=== PATIENT | female | born 1935 | race Caucasian/White ===

== ENCOUNTER 2017-05-20 05:54 | Day surgery (SDC) | payer MEDICARE, OTHER ==
[2017-05-16 13:07] VITALS: BP 160/70
[~2017-05-20] VITALS: Ht 165.1 cm; Wt 60.4 kg
[2017-05-20] VITALS (14 sets, daily range): BP systolic 124–145; BP diastolic 59–69
[2017-05-20] MEDS ORDERED: LACTATED RINGERS 1000ML 1,000 ML IV ONE (07:23)
[2017-05-20] MEDS: CEFAZOLIN SODIUM 1 GM VIAL IVP ONE ×2 (07:53→08:30)
[2017-05-20] MEDS ORDERED: MIDAZOLAM HCL 1 MG/ML 2ML VIAL ONE ×2 (07:57→08:58)
[2017-05-20] MEDS ORDERED: LIDOCAINE PF 2% 5ML ABBOJECT ONE (07:57)
[2017-05-20] MEDS ORDERED: DEXAMETHASONE SOD PHOSPHATE 10MG/ML 1ML VIAL ONE (07:57)
[2017-05-20] MEDS ORDERED: GLYCOPYRROLATE 0.2 MG/ML 5 ML VIAL ONE (07:57)
[2017-05-20] MEDS ORDERED: ONDANSETRON HCL 4 MG/2 ML VIAL ONE (07:57)
[2017-05-20] MEDS ORDERED: PROPOFOL 10 MG/ML 20ML VIAL IV ONE (07:58)
[2017-05-20] MEDS ORDERED: FENTANYL CITRATE PF 50 MCG/1 ML 2ML VIAL ONE (07:58)
[2017-05-20] MEDS ORDERED: WATER FOR INJECTION,STERILE 20 ML VIAL IJ ONE (08:00)
[2017-05-20] MEDS ORDERED: PREG150C PO (09:21)
[2017-05-20] MEDS ORDERED: DIPH25 PO (09:23)
[2017-05-20] MEDS ORDERED: VIT1CAPS28 PO (09:24)
[2017-05-20] MEDS ORDERED: NYST15CR2 TP (09:25)
[2017-05-20] MEDS ORDERED: PREMC VG (09:26)
[2017-05-20] MEDS ORDERED: CALC-1009 PO (09:27)
[2017-05-20] MEDS ORDERED: TURM500C9 PO (09:28)
[2017-05-20] MEDS ORDERED: NINT150C PO (09:31)
[2017-05-20] MEDS ORDERED: MULT-1203 PO (09:32)
[2017-05-20] MEDS ORDERED: B6/F1TAB PO (09:35)
[2017-05-20] MEDS ORDERED: TRAM50TA4 PO (10:17)
== END 2017-05-20 10:47 | disposition home or self-care (01) ==
LOC: DAH 05:54
PROVIDERS: ATTEND Neurological Surgery
DX: G56.01 Carpal tunnel syndrome, right upper limb (principal); Z88.8 Allergy status to other drugs, medicaments and biological substances; M19.90 Unspecified osteoarthritis, unspecified site
CPT/HCPCS: 64721; 93005; A4218; J0690; J1100; J2001; J2250 ×2; J2405; J2704; J3010; J3490; J7120

== ENCOUNTER 2017-08-15 09:17 | Inpatient (IN) | payer MEDICARE, OTHER ==
[~2017-08-15] VITALS: Ht 167.6 cm; Wt 56.9 kg
[~2017-08-15 09:17] MED LIST: B6/F1TAB PO; CALC-1009 PO; DIPH25 PO; MULT-1203 PO; NINT150C PO; NYST15CR2 TP; PREG150C PO; PREMC VG; TRAM50TA4 PO; TURM500C9 PO; VIT1CAPS28 PO
[2017-08-15 09:43] LABS: BASOPHILS % (AUTO) 0.2 % (0.0-5.0); EOSINOPHILS % (AUTO) 0.4 % (0.0-8.0); HEMATOCRIT 37.7 % (36-48); LYMPHOCYTES % (AUTO) 3.4 % (21.0-51.0); MEAN CORPUSCULAR HGB CONC 33.9 g/dL (32.0-36.0); MEAN CORPUSCULAR VOLUME 94.5 fL (79-99); MONOCYTES % (AUTO) 16.6 % (3.0-13.0); NEUTROPHILS % (AUTO) 79.4 % (40.0-77.0); PLATELET COUNT (AUTO) 292 K/uL (130-400); RED BLOOD CELL COUNT(AUTO) 3.99 MIL/uL (4.00-5.50); RED CELL DISTRIBUTION WIDTH 13.5 % (11.0-15.5); WHITE BLOOD COUNT (AUTO) 11.7 K/uL (4.8-10.8)
[2017-08-15 09:55] LABS: CREATININE 0.8 mg/dL (0.5-1.5); POTASSIUM 4.5 mmol/L (3.5-5.1)
[2017-08-15 09:56] LABS: ABG BASE EXCESS 1.9 mmol/L (-2.0-3.0); ABG HCO3 26.3 mmol/L (21.0-28.0); ABG OXYGEN SATURATION 92.6 % (95.0-99.0); ABG PCO2 40 mmHg (32-45)
[2017-08-15 09:58] LABS: INR 0.96 (0.85-1.15); PARTIAL THROMBOPLASTIN TIME 27.8 SEC (26.3-35.5); PROTHROMBIN TIME 10.1 SEC (9.6-11.6)
[2017-08-15 10:11] LABS: BILIRUBIN,DIRECT 0.2 mg/dL (0.0-0.3); BILIRUBIN,TOTAL 0.7 mg/dL (0.2-1.0); CREATINE KINASE MB 3.2 ng/mL (0.5-3.6); TOTAL PROTEIN, SERUM 7.6 g/dL (6.0-8.3)
[2017-08-15 10:24] LABS: B-TYPE NATRIURETIC PEPTIDE 789 pg/mL (0-100)
[2017-08-15] MEDS ORDERED: ZOSYN 3.375GM+NS 50ML 50 ML IV ONE (11:16)
[2017-08-15] MEDS ORDERED: FUROSEMIDE 10 MG/ML 4ML VIAL ONE (11:16)
[2017-08-15 15:30] VITALS: BP 130/89
[2017-08-15] MEDS ORDERED: ACETAMINOPHEN 325 MG TAB PO PRN (16:30)
[2017-08-15] MEDS ORDERED: ONDANSETRON HCL 4 MG/2 ML VIAL IVP PRN (16:30)
[2017-08-15] MEDS ORDERED: LACTULOSE 20 GM/30 ML UDCUP PO PRN (16:30)
[2017-08-15] MEDS ORDERED: SODIUM CHLORIDE 0.9% 10 ML VIAL IVP SCH (16:30)
[2017-08-15] MEDS: LEVOFLOXACIN 500 MG/D5W 100 ML 100 ML IV SCH (18:27)
[2017-08-15] MEDS: IPRATROPIUM/ALBUTEROL SULFATE 3 ML SOLUTION IH SCH ×2 (18:46→22:39)
[2017-08-15 19:34] VITALS: BP 93/55
[2017-08-15 23:37] VITALS: BP 121/72
[2017-08-16] MEDS ORDERED: PREGABALIN 75 MG CAPSULE ONE
[2017-08-16] MEDS: FUROSEMIDE 10 MG/ML 2ML VIAL IV SCH ×3 (00:04→21:18)
[2017-08-16] MEDS: IPRATROPIUM/ALBUTEROL SULFATE 3 ML SOLUTION IH SCH ×6 (01:34→22:13)
[2017-08-16 04:00] VITALS: BP 103/59
[2017-08-16 07:00] VITALS: BP 95/61
[2017-08-16] MEDS: FAMOTIDINE 20MG TAB 20 MG TAB PO SCH ×2 (09:22→21:18)
[2017-08-16 10:11] LABS: HEMATOCRIT 34.1 % (36-48); MEAN CORPUSCULAR HEMOGLOBIN 33.7 pg (27.0-33.0); MEAN CORPUSCULAR HGB CONC 35.4 g/dL (32.0-36.0); PLATELET COUNT (AUTO) 279 K/uL (130-400); RED BLOOD CELL COUNT(AUTO) 3.59 MIL/uL (4.00-5.50); RED CELL DISTRIBUTION WIDTH 13.8 % (11.0-15.5); WHITE BLOOD COUNT (AUTO) 10.1 K/uL (4.8-10.8)
[2017-08-16 10:20] LABS: CREATININE 0.8 mg/dL (0.5-1.5)
[2017-08-16 11:00] VITALS: BP_SYST 115; BP_SYST 127; BP_DIAS 55; BP_DIAS 71
[2017-08-16] MEDS ORDERED: ESTROGENS,CONJUGATED 0.625 MG/GM 42.5 GM VAG CRM VG SCH (11:15)
[2017-08-16] MEDS ORDERED: TRAMADOL HCL 50 MG TABLET PO PRN (11:15)
[2017-08-16] MEDS ORDERED: NYSTATIN-TRIAMCINOLONE CREAM 15 GM TP SCH (11:15)
[2017-08-16 16:00] VITALS: BP 127/55
[2017-08-16] MEDS: LEVOFLOXACIN 500 MG/D5W 100 ML 100 ML IV SCH (18:46)
[2017-08-16 19:27] VITALS: BP 123/70
[2017-08-16] MEDS: DIPHENHYDRAMINE HCL 25 MG CAPSULE PO SCH (21:18)
[2017-08-16] MEDS: PREGABALIN 75 MG CAPSULE PO SCH (21:18)
[2017-08-16] MEDS: OFEV 150 MG PO SCH (21:19)
[2017-08-16 23:48] VITALS: BP 108/62
[2017-08-17] MEDS: IPRATROPIUM/ALBUTEROL SULFATE 3 ML SOLUTION IH SCH ×6 (02:00→22:00)
[2017-08-17 04:22] VITALS: BP 106/60
[2017-08-17 07:00] VITALS: BP 119/63
[2017-08-17] MEDS: OFEV 150 MG PO SCH ×2 (09:00→21:50)
[2017-08-17] MEDS: PRESERVISION LUTEIN PO SCH (09:00)
[2017-08-17] MEDS: [UNRECOGNIZED DRUG - OTHER] PO SCH (09:00)
[2017-08-17] MEDS: TURMERIC 500 MG PO SCH (09:00)
[2017-08-17] MEDS: CALCIUM 600 + VITAMIN D 400 TABLET PO SCH (09:21)
[2017-08-17] MEDS: FAMOTIDINE 20MG TAB 20 MG TAB PO SCH ×2 (09:21→21:49)
[2017-08-17] MEDS: MULTIVITAMIN TABLET PO SCH (09:21)
[2017-08-17] MEDS: PREGABALIN 75 MG CAPSULE PO SCH ×2 (09:21→21:48)
[2017-08-17] MEDS: FUROSEMIDE 10 MG/ML 2ML VIAL IV SCH (09:21)
[2017-08-17 11:00] VITALS: BP 113/60
[2017-08-17] MEDS ORDERED: ENOXAPARIN SODIUM 1 MG/KG SQ SCH ×2 (13:30→21:00)
[2017-08-17] MEDS ORDERED: ENOXAPARIN SODIUM 60 MG/0.6 ML SQ SCH (13:30)
[2017-08-17 16:00] VITALS: BP 131/71
[2017-08-17] MEDS: LEVOFLOXACIN 500 MG/D5W 100 ML 100 ML IV SCH (17:13)
[2017-08-17 19:31] VITALS: BP 98/57
[2017-08-17] MEDS: METHYLPREDNISOLONE SOD SUCC 40MG/ML 1ML IVP SCH (21:47)
[2017-08-17] MEDS: ENOXAPARIN SODIUM 60 MG/0.6 ML SQ SCH (21:48)
[2017-08-17] MEDS: DIPHENHYDRAMINE HCL 25 MG CAPSULE PO SCH (21:48)
[2017-08-17 23:38] VITALS: BP 98/64
[2017-08-18] MEDS: IPRATROPIUM/ALBUTEROL SULFATE 3 ML SOLUTION IH SCH ×6 (02:00→21:55)
[2017-08-18 04:07] LABS: HEMATOCRIT 35.9 % (36-48); MEAN CORPUSCULAR HEMOGLOBIN 32.8 pg (27.0-33.0); MEAN CORPUSCULAR HGB CONC 34.4 g/dL (32.0-36.0); MEAN CORPUSCULAR VOLUME 95.5 fL (79-99); PLATELET COUNT (AUTO) 309 K/uL (130-400); RED BLOOD CELL COUNT(AUTO) 3.76 MIL/uL (4.00-5.50); RED CELL DISTRIBUTION WIDTH 13.7 % (11.0-15.5)
[2017-08-18 04:09] VITALS: BP 126/77
[2017-08-18 04:29] LABS: CREATININE 0.6 mg/dL (0.5-1.5); POTASSIUM 4.4 mmol/L (3.5-5.1)
[2017-08-18] MEDS: ACETAMINOPHEN 325 MG TAB PO PRN (06:09)
[2017-08-18 07:18] VITALS: BP 115/73
[2017-08-18] MEDS: PRESERVISION LUTEIN PO SCH (09:00)
[2017-08-18] MEDS: TURMERIC 500 MG PO SCH (09:00)
[2017-08-18] MEDS: [UNRECOGNIZED DRUG - OTHER] PO SCH (09:00)
[2017-08-18] MEDS: OFEV 150 MG PO SCH ×2 (09:00→21:00)
[2017-08-18] MEDS: MULTIVITAMIN TABLET PO SCH (10:30)
[2017-08-18] MEDS: CALCIUM 600 + VITAMIN D 400 TABLET PO SCH (10:30)
[2017-08-18] MEDS: PREGABALIN 75 MG CAPSULE PO SCH ×2 (10:30→22:09)
[2017-08-18] MEDS: FAMOTIDINE 20MG TAB 20 MG TAB PO SCH ×2 (10:30→22:09)
[2017-08-18] MEDS: METHYLPREDNISOLONE SOD SUCC 40MG/ML 1ML IVP SCH ×2 (10:31→22:09)
[2017-08-18] MEDS: FUROSEMIDE 20 MG TABLET PO SCH (10:31)
[2017-08-18] MEDS: ENOXAPARIN SODIUM 60 MG/0.6 ML SQ SCH ×2 (10:33→22:11)
[2017-08-18 11:08] VITALS: BP 114/66
[2017-08-18 16:07] VITALS: BP 125/71
[2017-08-18] MEDS: LEVOFLOXACIN 500 MG/D5W 100 ML 100 ML IV SCH (17:35)
[2017-08-18 20:10] VITALS: BP 135/79
[2017-08-18] MEDS: DIPHENHYDRAMINE HCL 25 MG CAPSULE PO SCH (22:09)
[2017-08-18 23:57] VITALS: BP 137/84
[2017-08-19 04:44] LABS: HEMATOCRIT 35.9 % (36-48); MEAN CORPUSCULAR HEMOGLOBIN 31.9 pg (27.0-33.0); MEAN CORPUSCULAR HGB CONC 33.5 g/dL (32.0-36.0); MEAN CORPUSCULAR VOLUME 95.1 fL (79-99); PLATELET COUNT (AUTO) 345 K/uL (130-400); RED BLOOD CELL COUNT(AUTO) 3.78 MIL/uL (4.00-5.50); RED CELL DISTRIBUTION WIDTH 13.5 % (11.0-15.5); WHITE BLOOD COUNT (AUTO) 12.2 K/uL (4.8-10.8)
[2017-08-19 04:52] LABS: CREATININE 0.7 mg/dL (0.5-1.5); POTASSIUM 4.6 mmol/L (3.5-5.1)
[2017-08-19 05:00] VITALS: BP 134/82
[2017-08-19] MEDS: IPRATROPIUM/ALBUTEROL SULFATE 3 ML SOLUTION IH SCH ×5 (05:52→21:18)
[2017-08-19 07:32] VITALS: BP 129/77
[2017-08-19] MEDS: PRESERVISION LUTEIN PO SCH (09:00)
[2017-08-19] MEDS: [UNRECOGNIZED DRUG - OTHER] PO SCH (09:00)
[2017-08-19] MEDS: OFEV 150 MG PO SCH ×2 (09:00→20:07)
[2017-08-19] MEDS: TURMERIC 500 MG PO SCH (09:00)
[2017-08-19] MEDS: METHYLPREDNISOLONE SOD SUCC 40MG/ML 1ML IVP SCH ×2 (09:32→20:04)
[2017-08-19] MEDS: FAMOTIDINE 20MG TAB 20 MG TAB PO SCH ×2 (09:33→20:05)
[2017-08-19] MEDS: PREGABALIN 75 MG CAPSULE PO SCH ×2 (09:33→20:05)
[2017-08-19] MEDS: MULTIVITAMIN TABLET PO SCH (09:33)
[2017-08-19] MEDS: FUROSEMIDE 20 MG TABLET PO SCH (09:33)
[2017-08-19] MEDS: CALCIUM 600 + VITAMIN D 400 TABLET PO SCH (09:33)
[2017-08-19] MEDS: ENOXAPARIN SODIUM 60 MG/0.6 ML SQ SCH ×2 (09:34→20:06)
[2017-08-19 11:07] VITALS: BP 131/72
[2017-08-19 15:53] VITALS: BP 136/79
[2017-08-19 19:50] VITALS: BP 148/86
[2017-08-19] MEDS: DIPHENHYDRAMINE HCL 25 MG CAPSULE PO SCH (20:04)
[2017-08-19] MEDS: LEVOFLOXACIN 500 MG/D5W 100 ML 100 ML IV SCH (20:19)
[2017-08-20] VITALS (21 sets, daily range): BP systolic 122–164; BP diastolic 44–116
[2017-08-20] MEDS: IPRATROPIUM/ALBUTEROL SULFATE 3 ML SOLUTION IH SCH ×6 (02:00→21:29)
[2017-08-20] MEDS: ACETAMINOPHEN 325 MG TAB PO PRN (05:54)
[2017-08-20 07:00] LABS: HEMATOCRIT 38.4 % (36-48); MEAN CORPUSCULAR HEMOGLOBIN 32.3 pg (27.0-33.0); MEAN CORPUSCULAR HGB CONC 33.8 g/dL (32.0-36.0); MEAN CORPUSCULAR VOLUME 95.3 fL (79-99); PLATELET COUNT (AUTO) 371 K/uL (130-400); RED BLOOD CELL COUNT(AUTO) 4.03 MIL/uL (4.00-5.50); RED CELL DISTRIBUTION WIDTH 13.7 % (11.0-15.5); WHITE BLOOD COUNT (AUTO) 17.6 K/uL (4.8-10.8)
[2017-08-20 07:06] LABS: CREATININE 0.6 mg/dL (0.5-1.5); POTASSIUM 4.5 mmol/L (3.5-5.1)
[2017-08-20] MEDS: FUROSEMIDE 20 MG TABLET PO SCH (09:00)
[2017-08-20] MEDS: CALCIUM 600 + VITAMIN D 400 TABLET PO SCH (09:00)
[2017-08-20] MEDS: TURMERIC 500 MG PO SCH (09:00)
[2017-08-20] MEDS: OFEV 150 MG PO SCH ×2 (09:00→20:48)
[2017-08-20] MEDS: PRESERVISION LUTEIN PO SCH (09:00)
[2017-08-20] MEDS: [UNRECOGNIZED DRUG - OTHER] PO SCH (09:00)
[2017-08-20] MEDS: MULTIVITAMIN TABLET PO SCH (09:00)
[2017-08-20] MEDS: FAMOTIDINE 20MG TAB 20 MG TAB PO SCH ×2 (09:00→20:28)
[2017-08-20] MEDS: PREGABALIN 75 MG CAPSULE PO SCH ×2 (09:00→20:27)
[2017-08-20] MEDS: METHYLPREDNISOLONE SOD SUCC 40MG/ML 1ML IVP SCH ×4 (09:25→23:56)
[2017-08-20] MEDS: ENOXAPARIN SODIUM 60 MG/0.6 ML SQ SCH ×2 (09:31→20:28)
[2017-08-20] MEDS: LEVOFLOXACIN 500 MG/D5W 100 ML 100 ML IV SCH (19:26)
[2017-08-20] MEDS: LORAZEPAM 2 MG/ML 1 ML VIAL IVP PRN (19:27)
[2017-08-20] MEDS: DIPHENHYDRAMINE HCL 25 MG CAPSULE PO SCH (20:27)
[2017-08-21] VITALS (24 sets, daily range): BP systolic 115–165; BP diastolic 68–99
[2017-08-21] MEDS: LORAZEPAM 2 MG/ML 1 ML VIAL IVP PRN ×3 (01:30→17:25)
[2017-08-21] MEDS: IPRATROPIUM/ALBUTEROL SULFATE 3 ML SOLUTION IH SCH ×6 (01:40→21:26)
[2017-08-21 03:45] LABS: BASOPHILS % (AUTO) 0.1 % (0.0-5.0); HEMATOCRIT 37.1 % (36-48); LYMPHOCYTES % (AUTO) 1.9 % (21.0-51.0); MEAN CORPUSCULAR HEMOGLOBIN 31.7 pg (27.0-33.0); MEAN CORPUSCULAR HGB CONC 33.4 g/dL (32.0-36.0); MONOCYTES % (AUTO) 6.8 % (3.0-13.0); NEUTROPHILS % (AUTO) 91.2 % (40.0-77.0); PLATELET COUNT (AUTO) 312 K/uL (130-400); RED BLOOD CELL COUNT(AUTO) 3.91 MIL/uL (4.00-5.50); RED CELL DISTRIBUTION WIDTH 13.7 % (11.0-15.5); WHITE BLOOD COUNT (AUTO) 8.9 K/uL (4.8-10.8)
[2017-08-21 03:55] LABS: ALBUMIN 2.4 g/dL (3.5-5.0); BILIRUBIN,TOTAL 0.9 mg/dL (0.2-1.0); CREATININE 0.5 mg/dL (0.5-1.5); POTASSIUM 4.6 mmol/L (3.5-5.1); TOTAL PROTEIN, SERUM 7.1 g/dL (6.0-8.3)
[2017-08-21 04:16] LABS: B-TYPE NATRIURETIC PEPTIDE 1990 pg/mL (0-100)
[2017-08-21 04:24] LABS: ABG BASE EXCESS 11.1 mmol/L (-2.0-3.0); ABG HCO3 39.9 mmol/L (21.0-28.0); ABG OXYGEN SATURATION 96.2 % (95.0-99.0); ABG PCO2 72 mmHg (32-45)
[2017-08-21] MEDS: METHYLPREDNISOLONE SOD SUCC 40MG/ML 1ML IVP SCH ×3 (05:53→17:19)
[2017-08-21] MEDS: MULTIVITAMIN TABLET PO SCH (09:00)
[2017-08-21] MEDS: [UNRECOGNIZED DRUG - OTHER] PO SCH (09:00)
[2017-08-21] MEDS: PRESERVISION LUTEIN PO SCH (09:00)
[2017-08-21] MEDS: PREGABALIN 75 MG CAPSULE PO SCH (09:00)
[2017-08-21] MEDS: TURMERIC 500 MG PO SCH (09:00)
[2017-08-21] MEDS: CALCIUM 600 + VITAMIN D 400 TABLET PO SCH (09:00)
[2017-08-21] MEDS: OFEV 150 MG PO SCH ×2 (09:00→21:00)
[2017-08-21] MEDS: FUROSEMIDE 20 MG TABLET PO SCH (09:00)
[2017-08-21] MEDS: FAMOTIDINE 20MG TAB 20 MG TAB PO SCH ×2 (09:00→21:00)
[2017-08-21] MEDS: ENOXAPARIN SODIUM 60 MG/0.6 ML SQ SCH ×2 (10:16→22:03)
[2017-08-21] MEDS ORDERED: LORAZEPAM 2 MG/ML 1 ML VIAL ONE ×2 (12:06→17:16)
[2017-08-21] MEDS: LEVOFLOXACIN 500 MG/D5W 100 ML 100 ML IV SCH (17:23)
[2017-08-21] MEDS: DIPHENHYDRAMINE HCL 25 MG CAPSULE PO SCH (21:00)
[2017-08-22] VITALS (17 sets, daily range): BP systolic 129–179; BP diastolic 66–96
[2017-08-22] MEDS: METHYLPREDNISOLONE SOD SUCC 40MG/ML 1ML IVP SCH ×3 (00:25→12:15)
[2017-08-22] MEDS: IPRATROPIUM/ALBUTEROL SULFATE 3 ML SOLUTION IH SCH ×3 (01:34→09:58)
[2017-08-22 03:40] LABS: HEMATOCRIT 38.4 % (36-48); MEAN CORPUSCULAR HEMOGLOBIN 32.5 pg (27.0-33.0); MEAN CORPUSCULAR HGB CONC 33.4 g/dL (32.0-36.0); MEAN CORPUSCULAR VOLUME 97.3 fL (79-99); PLATELET COUNT (AUTO) 313 K/uL (130-400); RED BLOOD CELL COUNT(AUTO) 3.95 MIL/uL (4.00-5.50); RED CELL DISTRIBUTION WIDTH 13.7 % (11.0-15.5); WHITE BLOOD COUNT (AUTO) 6.8 K/uL (4.8-10.8)
[2017-08-22 03:47] LABS: CREATININE 0.8 mg/dL (0.5-1.5); POTASSIUM 5.1 mmol/L (3.5-5.1)
[2017-08-22 03:54] LABS: B-TYPE NATRIURETIC PEPTIDE 1370 pg/mL (0-100)
[2017-08-22] MEDS: [UNRECOGNIZED DRUG - OTHER] PO SCH (08:11)
[2017-08-22] MEDS: CALCIUM 600 + VITAMIN D 400 TABLET PO SCH (08:11)
[2017-08-22] MEDS: FAMOTIDINE 20MG TAB 20 MG TAB PO SCH (08:12)
[2017-08-22] MEDS: TURMERIC 500 MG PO SCH (08:12)
[2017-08-22] MEDS: FUROSEMIDE 20 MG TABLET PO SCH (08:12)
[2017-08-22] MEDS: OFEV 150 MG PO SCH (08:12)
[2017-08-22] MEDS: MULTIVITAMIN TABLET PO SCH (08:12)
[2017-08-22] MEDS: PRESERVISION LUTEIN PO SCH (08:12)
[2017-08-22] MEDS ORDERED: LORAZEPAM 2 MG/ML 1 ML VIAL ONE (09:19)
[2017-08-22] MEDS: ENOXAPARIN SODIUM 60 MG/0.6 ML SQ SCH (09:31)
[2017-08-22] MEDS: LORAZEPAM 2 MG/ML 1 ML VIAL IVP PRN (13:29)
[2017-08-22] MEDS: MORPHINE SULFATE 4 MG/1ML SYG IV PRN ×2 (13:32→14:11)
== END 2017-08-22 13:59 | disposition hospice, inpatient (51) | DRG 189 ==
LOC: EDH 09:17 → EDHIP 12:25 → 2AH 15:13 → 2CH 08-20 08:23
PROVIDERS: ADMIT Family Medicine; ATTEND Family Medicine
PROC: 5A09457 Assistance with Respiratory Ventilation, 24-96 Consecutive Hours, Continuous Positive Airway Pressure (ICD-10-PCS; principal; 2017-08-20)
PROC: 5A09357 Assistance with Respiratory Ventilation, Less than 24 Consecutive Hours, Continuous Positive Airway Pressure (ICD-10-PCS; 2017-08-22)
DX: J96.21 Acute and chronic respiratory failure with hypoxia (principal); I27.29 Other secondary pulmonary hypertension; E87.1 Hypo-osmolality and hyponatremia; E44.1 Mild protein-calorie malnutrition; I27.81 Cor pulmonale (chronic); I50.30 Unspecified diastolic (congestive) heart failure; J44.1 Chronic obstructive pulmonary disease with (acute) exacerbation; J84.112 Idiopathic pulmonary fibrosis; K21.9 Gastro-esophageal reflux disease without esophagitis; R62.7 Adult failure to thrive; Z51.5 Encounter for palliative care; Z66 Do not resuscitate; Z79.01 Long term (current) use of anticoagulants; Z91.041 Radiographic dye allergy status; Z68.20 Body mass index [BMI] 20.0-20.9, adult; Z99.81 Dependence on supplemental oxygen; Z74.01 Bed confinement status; Z88.2 Allergy status to sulfonamides; Z88.8 Allergy status to other drugs, medicaments and biological substances
CPT/HCPCS: 36415; 36600; 71045; 71046; 71250; 78582; 80048; 80053; 80076; 82550; 82553; 82803; 83880; 84484; 85025; 85027; 85610; 85730; 87040; 93005; 93306; 93970; 94640; 94660; 94664; 94760; 97039; 99291; A4606; A6234; A9540; A9558; J1650; J1940; J1956; J2060; J2270; J2543; J2920; Q0163

== ENCOUNTER 2017-08-22 14:00 | Inpatient (IN) | payer OTHER ==
[2017-08-22] MEDS ORDERED: MORPHINE SULFATE 4 MG/1ML SYG ONE (16:41)
[2017-08-22] MEDS ORDERED: MORPHINE SULFATE 2 MG/ML 1ML SYG IVP PRN ×2 (17:30)
[2017-08-22] MEDS ORDERED: GLYCOPYRROLATE 0.2 MG/ML 5 ML VIAL IVP PRN (17:30)
[2017-08-22] MEDS ORDERED: BISACODYL 10 MG SUPP.RECT RC PRN (17:30)
[2017-08-22] MEDS ORDERED: LORAZEPAM 2 MG/ML 1 ML VIAL IVP PRN (17:30)
[2017-08-22] MEDS ORDERED: ACETAMINOPHEN 650 MG SUPPOSITORY RC PRN (17:30)
[2017-08-22 20:03] VITALS: BP 43/21
== END 2017-08-22 21:35 | disposition expired | DRG 189 ==
LOC: 2CH 14:00 → 4BH 16:43
PROVIDERS: ADMIT Internal Medicine; ATTEND Internal Medicine
DX: J96.90 Respiratory failure, unspecified, unspecified whether with hypoxia or hypercapnia (principal); Z51.5 Encounter for palliative care; Z66 Do not resuscitate
CPT/HCPCS: J2060; J2270